=== PATIENT | male | born 1955 | race Caucasian/White ===

== ENCOUNTER 2020-12-28 04:47 | Inpatient (IN) | payer MEDICARE ==
[~2020-12-28] VITALS: Ht 190.5 cm; Wt 95.3 kg
[~2020-12-28 04:47] MED LIST: HYDROCODONE; ISOSORBIDE DINI20 MG PO; PLAVIX75 MG PO; SOMA350 MG PO; XANAX0.5 MG PO
[2020-12-28] MEDS ORDERED: SODIUM CHLORIDE 0.9% 1000ML 1,000 ML IV STA (05:58)
[2020-12-28] MEDS ORDERED: METHYLPREDNISOLONE SOD SUCC 125 MG/2ML VIAL IV STA (05:58)
[2020-12-28] MEDS ORDERED: ONDANSETRON HCL INJ 2MG/ML 2ML 2 MG/ML VIAL IV STA (05:58)
[2020-12-28] MEDS ORDERED: ALPRAZOLAM 0.5 MG TAB PO ONE (06:00)
[2020-12-28 06:52] LABS: BASOPHILS # (AUTO) 0.1 (0.0-0.1); BASOPHILS % 0.3 % (0.0-1.0); EOSINOPHILS # (AUTO) 0.1 (0.0-0.4); EOSINOPHILS % 0.4 % (0.0-6.0); HEMATOCRIT 36.6 % (38.2-49.6); HEMOGLOBIN 12.6 g/dL (14.0-18.0); LYMPHOCYTES # (AUTO) 1.6 (1.0-3.2); LYMPHOCYTES % 7.5 % (18.0-39.1); MEAN CORPUSCULAR HEMOGLOBIN 30.1 pg (28-32); MEAN CORPUSCULAR HGB CONC 34.4 g/dL (31-35); MEAN CORPUSCULAR VOLUME 87.6 fL (81-99); MONOCYTES # (AUTO) 1.1 (0.2-0.8); MONOCYTES % 5.1 % (4.4-11.3); NEUTROPHILS # (AUTO) 18.3 (2.1-6.9); NEUTROPHILS % 85.6 % (38.7-80.0); PLATELET COUNT 704 x10e3/uL (140-360); RED BLOOD COUNT 4.18 x10e6/uL (4.3-5.7); RED CELL DISTRIBUTION WIDTH 14.1 % (11.7-14.4)
[2020-12-28 07:01] LABS: INR 1.04; PARTIAL THROMBOPLASTIN TIME 41.1 seconds (23.8-35.5); PROTHROMBIN TIME 14.2 seconds (11.9-14.5)
[2020-12-28 07:09] LABS: ALBUMIN 2.4 g/dL (3.5-5.0); ALBUMIN/GLOBULIN RATIO 0.4 (0.8-2.0); ANION GAP 16.3 mmol/L (8-16); CALCIUM 8.9 mg/dL (8.4-10.2); CREATININE, SERUM 1.23 mg/dL (0.72-1.25); POTASSIUM 3.3 mmol/L (3.5-5.1)
[2020-12-28 07:15] LABS: CREATINE KINASE MB 0.8 ng/mL (0-5.0)
[2020-12-28] MEDS: LEVOFLOXACIN 750MG/D5W 150ML 150 ML IV SCH (07:30)
[2020-12-28] MEDS ORDERED: ALBUTEROL/IPRATROPIUM 3 ML NEB NEB ONE (08:15)
[2020-12-28] MEDS ORDERED: ALBUTEROL/IPRATROPIUM 3 ML NEB NEB PRN (08:45)
[2020-12-28] MEDS ORDERED: SODIUM CHLORIDE 0.9% 50ML 0 ML ONE (08:52)
[2020-12-28] MEDS ORDERED: IOPAMIDOL 370 MG/ML 200 ML INFUS..BTL INJ ONE (08:52)
[2020-12-28] MEDS ORDERED: LORAZEPAM INJ 2 MG/ML VIAL IV ONE (09:00)
[2020-12-28] MEDS: AZTREONAM 1 GM/NS 50 ML 50 ML IV SCH ×2 (09:48→18:00)
[2020-12-28] MEDS: SODIUM CHLORIDE 0.9% 1000ML 1,000 ML IV SCH ×2 (10:57→18:17)
[2020-12-28] MEDS ORDERED: ALBUTEROL SULF 0.083% NEB SOLN 3 ML NEB NEB SCH (11:00)
[2020-12-28] MEDS: CLINDAMYCIN PHOS 900MG/ 50ML 50 ML IV SCH ×2 (11:14→17:43)
[2020-12-28] MEDS: ISOSORBIDE DINITRATE 20 MG TAB PO SCH (11:14)
[2020-12-28 12:55] VITALS: BP 100/78
[2020-12-28] MEDS ORDERED: IPRATROPIUM BROMIDE 0.02% 2.5 ML NEB NEB SCH (13:00)
[2020-12-28] MEDS: ALBUTEROL/IPRATROPIUM 3 ML NEB NEB SCH ×2 (13:00→19:30)
[2020-12-28 13:05] VITALS: BP 100/78
[2020-12-28] MEDS: HYDROCODONE/APAP 5MG-325MG TAB PO PRN (15:20)
[2020-12-28] MEDS: BENZONATATE 100 MG CAP PO PRN ×2 (15:24→23:55)
[2020-12-28 15:35] LABS: CREATINE KINASE MB 0.8 ng/mL (0-5.0)
[2020-12-28 15:50] VITALS: BP 87/69
[2020-12-28 19:46] VITALS: BP 121/87
[2020-12-28 20:00] VITALS: BP 121/87
[2020-12-28] MEDS: CARISOPRODOL 350 MG TAB PO PRN (20:43)
[2020-12-28] MEDS: METHYLPREDNISOLONE SOD SUCC 40 MG/ML VIAL 1ML IV SCH (20:43)
[2020-12-28] MEDS: ALPRAZOLAM 1 MG TAB PO PRN (20:43)
[2020-12-29] VITALS (8 sets, daily range): BP systolic 87–122; BP diastolic 62–95
[2020-12-29] MEDS: ALBUTEROL/IPRATROPIUM 3 ML NEB NEB SCH ×5 (00:15→20:45)
[2020-12-29] MEDS: CLINDAMYCIN PHOS 900MG/ 50ML 50 ML IV SCH ×3 (01:07→18:10)
[2020-12-29] MEDS: AZTREONAM 1 GM/NS 50 ML 50 ML IV SCH ×3 (01:07→16:13)
[2020-12-29] MEDS: SODIUM CHLORIDE 0.9% 1000ML 1,000 ML IV SCH ×3 (01:07→14:38)
[2020-12-29 06:51] LABS: BASOPHILS % 0.1 % (0.0-1.0); HEMATOCRIT 29.3 % (38.2-49.6); HEMOGLOBIN 9.8 g/dL (14.0-18.0); LYMPHOCYTES # (AUTO) 1.1 (1.0-3.2); LYMPHOCYTES % 7.5 % (18.0-39.1); MEAN CORPUSCULAR HEMOGLOBIN 29.9 pg (28-32); MEAN CORPUSCULAR HGB CONC 33.4 g/dL (31-35); MEAN CORPUSCULAR VOLUME 89.3 fL (81-99); MONOCYTES # (AUTO) 0.6 (0.2-0.8); NEUTROPHILS # (AUTO) 13.3 (2.1-6.9); NEUTROPHILS % 87.9 % (38.7-80.0); PLATELET COUNT 555 x10e3/uL (140-360); RED BLOOD COUNT 3.28 x10e6/uL (4.3-5.7); RED CELL DISTRIBUTION WIDTH 14.3 % (11.7-14.4)
[2020-12-29 07:23] LABS: ALANINE AMINOTRANSFERASE 9 IU/L (0-55); ALBUMIN 1.9 g/dL (3.5-5.0); ALBUMIN/GLOBULIN RATIO 0.4 (0.8-2.0); ALKALINE PHOSPHATASE 79 IU/L (40-150); ANION GAP 15.1 mmol/L (8-16); BLOOD UREA NITROGEN 22 mg/dL (7-26); BUN/CREATININE RATIO 21 (6-25); CARBON DIOXIDE 22 mmol/L (22-29); CHLORIDE 99 mmol/L (98-107); CREATININE, SERUM 1.06 mg/dL (0.72-1.25); EST GLOMERULAR FILTRATION RATE > 60 ML/MIN (60-); GLUCOSE 166 mg/dL (74-118); POTASSIUM 4.1 mmol/L (3.5-5.1); SODIUM 132 mmol/L (136-145)
[2020-12-29 07:33] LABS: CREATINE KINASE 29 IU/L (30-200)
[2020-12-29] MEDS: ISOSORBIDE DINITRATE 20 MG TAB PO SCH (08:56)
[2020-12-29] MEDS: LEVOFLOXACIN 750MG/D5W 150ML 150 ML IV SCH (08:56)
[2020-12-29] MEDS: METHYLPREDNISOLONE SOD SUCC 40 MG/ML VIAL 1ML IV SCH (08:56)
[2020-12-29] MEDS: ALPRAZOLAM 1 MG TAB PO PRN ×2 (09:03→20:40)
[2020-12-29] MEDS: CARISOPRODOL 350 MG TAB PO PRN ×2 (09:03→20:40)
[2020-12-29] MEDS: DOXYCYCLINE HYCLATE TABLET 100 MG TAB PO SCH ×2 (12:25→20:40)
[2020-12-29] MEDS: HYDROCODONE/APAP 5MG-325MG TAB PO PRN (14:39)
[2020-12-30] VITALS (8 sets, daily range): BP systolic 103–141; BP diastolic 70–111
[2020-12-30] MEDS: AZTREONAM 1 GM/NS 50 ML 50 ML IV SCH ×3 (00:35→16:37)
[2020-12-30] MEDS: CLINDAMYCIN PHOS 900MG/ 50ML 50 ML IV SCH ×3 (01:32→16:37)
[2020-12-30] MEDS: ALBUTEROL/IPRATROPIUM 3 ML NEB NEB SCH ×4 (02:07→21:36)
[2020-12-30] MEDS: ALPRAZOLAM 1 MG TAB PO PRN ×2 (03:15→19:53)
[2020-12-30] MEDS: HYDROCODONE/APAP 5MG-325MG TAB PO PRN ×3 (03:15→22:10)
[2020-12-30] MEDS: CARISOPRODOL 350 MG TAB PO PRN ×2 (03:58→16:46)
[2020-12-30] MEDS: SODIUM CHLORIDE 0.9% 1000ML 1,000 ML IV SCH ×2 (05:34→23:19)
[2020-12-30 06:44] LABS: BASOPHILS % 0.1 % (0.0-1.0); EOSINOPHILS % 0.1 % (0.0-6.0); HEMATOCRIT 25.6 % (38.2-49.6); HEMOGLOBIN 8.7 g/dL (14.0-18.0); LYMPHOCYTES # (AUTO) 2.3 (1.0-3.2); LYMPHOCYTES % 17.3 % (18.0-39.1); MEAN CORPUSCULAR HEMOGLOBIN 30.3 pg (28-32); MEAN CORPUSCULAR VOLUME 89.2 fL (81-99); MONOCYTES # (AUTO) 0.7 (0.2-0.8); MONOCYTES % 5.3 % (4.4-11.3); NEUTROPHILS # (AUTO) 10.1 (2.1-6.9); NEUTROPHILS % 76.7 % (38.7-80.0); PLATELET COUNT 544 x10e3/uL (140-360); RED BLOOD COUNT 2.87 x10e6/uL (4.3-5.7); RED CELL DISTRIBUTION WIDTH 14.3 % (11.7-14.4)
[2020-12-30 07:06] LABS: ANION GAP 10.1 mmol/L (8-16); BLOOD UREA NITROGEN 17 mg/dL (7-26); BUN/CREATININE RATIO 21 (6-25); CALCIUM 7.8 mg/dL (8.4-10.2); CARBON DIOXIDE 24 mmol/L (22-29); CHLORIDE 104 mmol/L (98-107); CREATININE, SERUM 0.81 mg/dL (0.72-1.25); EST GLOMERULAR FILTRATION RATE > 60 ML/MIN (60-); GLUCOSE 88 mg/dL (74-118); POTASSIUM 4.1 mmol/L (3.5-5.1); SODIUM 134 mmol/L (136-145)
[2020-12-30] MEDS: DOXYCYCLINE HYCLATE TABLET 100 MG TAB PO SCH ×2 (09:00→20:38)
[2020-12-30] MEDS: ISOSORBIDE DINITRATE 20 MG TAB PO SCH (09:00)
[2020-12-30] MEDS: METHYLPREDNISOLONE SOD SUCC 40 MG/ML VIAL 1ML IV SCH (09:51)
[2020-12-30] MEDS ORDERED: LIDOCAINE HCL 2% JELLY 5 ML TUBE ONE (12:35)
[2020-12-30] MEDS ORDERED: DEXAMETHASONE SOD PHOS INJ 4 MG/ML VIAL ONE (12:35)
[2020-12-30] MEDS ORDERED: LIDOCAINE HCL 2% LOCAL INJ 5 ML SDV VIAL INJ ONE (12:35)
[2020-12-30] MEDS ORDERED: PROPOFOL IV EMULSION 10 MG/ML 20 ML VIAL ONE (12:35)
[2020-12-30] MEDS ORDERED: ONDANSETRON HCL INJ 2MG/ML 2ML 2 MG/ML VIAL ONE (12:35)
[2020-12-30] MEDS ORDERED: SEVOFLURANE INHAL SOLN 250 ML PEN BTL ONE (12:35)
[2020-12-30] MEDS ORDERED: MIDAZOLAM HCL 2 MG/2 ML VIAL ONE (13:18)
[2020-12-30] MEDS ORDERED: FENTANYL CITRATE/PF 100MCG/2 ML INJ ONE (13:18)
[2020-12-30] MEDS ORDERED: LIDOCAINE HCL 1% LOCAL INJ 20 ML VIAL ONE (13:30)
[2020-12-30] MEDS ORDERED: LIDOCAINE HCL 4% 50 ML BTL ONE (14:04)
[2020-12-30] MEDS ORDERED: EPINEPHRINE HCL 1:1000 1ML 1 MG/ML AMP ONE (14:32)
[2020-12-31] VITALS (7 sets, daily range): BP systolic 113–138; BP diastolic 85–108
[2020-12-31] MEDS ORDERED: SODIUM CHLORIDE 0.9% 50ML 0 ML ONE (01:20)
[2020-12-31] MEDS: AZTREONAM 1 GM/NS 50 ML 50 ML IV SCH ×3 (01:22→16:00)
[2020-12-31] MEDS: CARISOPRODOL 350 MG TAB PO PRN ×3 (01:23→20:20)
[2020-12-31] MEDS: CLINDAMYCIN PHOS 900MG/ 50ML 50 ML IV SCH ×3 (02:03→17:51)
[2020-12-31] MEDS: ALBUTEROL/IPRATROPIUM 3 ML NEB NEB SCH ×3 (05:20→19:40)
[2020-12-31] MEDS: SODIUM CHLORIDE 0.9% 1000ML 1,000 ML IV SCH (05:27)
[2020-12-31] MEDS: ALPRAZOLAM 1 MG TAB PO PRN ×2 (05:33→15:45)
[2020-12-31] MEDS: METHYLPREDNISOLONE SOD SUCC 40 MG/ML VIAL 1ML IV SCH (08:19)
[2020-12-31] MEDS: ISOSORBIDE DINITRATE 20 MG TAB PO SCH (08:22)
[2020-12-31] MEDS: DOXYCYCLINE HYCLATE TABLET 100 MG TAB PO SCH ×2 (08:22→20:14)
[2020-12-31] MEDS: HYDROCODONE/APAP 5MG-325MG TAB PO PRN ×3 (09:27→20:20)
[2021-01-01] VITALS (7 sets, daily range): BP systolic 114–163; BP diastolic 77–114
[2021-01-01] MEDS: AZTREONAM 1 GM/NS 50 ML 50 ML IV SCH ×3 (01:27→16:01)
[2021-01-01] MEDS: ALBUTEROL/IPRATROPIUM 3 ML NEB NEB SCH ×4 (01:50→23:26)
[2021-01-01] MEDS: ALPRAZOLAM 1 MG TAB PO PRN ×2 (02:39→19:32)
[2021-01-01] MEDS: CLINDAMYCIN PHOS 900MG/ 50ML 50 ML IV SCH ×3 (02:39→17:22)
[2021-01-01 06:19] LABS: BASOPHILS % 0.2 % (0.0-1.0); EOSINOPHILS # (AUTO) 0.1 (0.0-0.4); EOSINOPHILS % 0.8 % (0.0-6.0); HEMOGLOBIN 9.4 g/dL (14.0-18.0); LYMPHOCYTES # (AUTO) 2.5 (1.0-3.2); LYMPHOCYTES % 19.1 % (18.0-39.1); MEAN CORPUSCULAR HEMOGLOBIN 29.7 pg (28-32); MEAN CORPUSCULAR HGB CONC 33.6 g/dL (31-35); MEAN CORPUSCULAR VOLUME 88.6 fL (81-99); MONOCYTES # (AUTO) 0.7 (0.2-0.8); MONOCYTES % 5.3 % (4.4-11.3); NEUTROPHILS # (AUTO) 9.7 (2.1-6.9); NEUTROPHILS % 74.1 % (38.7-80.0); PLATELET COUNT 532 x10e3/uL (140-360); RED BLOOD COUNT 3.16 x10e6/uL (4.3-5.7); RED CELL DISTRIBUTION WIDTH 14.4 % (11.7-14.4)
[2021-01-01 06:54] LABS: ANION GAP 12.1 mmol/L (8-16); BLOOD UREA NITROGEN 14 mg/dL (7-26); BUN/CREATININE RATIO 18 (6-25); CARBON DIOXIDE 28 mmol/L (22-29); CHLORIDE 97 mmol/L (98-107); CREATININE, SERUM 0.78 mg/dL (0.72-1.25); EST GLOMERULAR FILTRATION RATE > 60 ML/MIN (60-); GLUCOSE 69 mg/dL (74-118); POTASSIUM 4.1 mmol/L (3.5-5.1); SODIUM 133 mmol/L (136-145)
[2021-01-01] MEDS: METHYLPREDNISOLONE SOD SUCC 40 MG/ML VIAL 1ML IV SCH (07:46)
[2021-01-01] MEDS: ISOSORBIDE DINITRATE 20 MG TAB PO SCH (07:47)
[2021-01-01] MEDS: DOXYCYCLINE HYCLATE TABLET 100 MG TAB PO SCH ×2 (07:47→20:22)
[2021-01-01] MEDS: HYDROCODONE/APAP 5MG-325MG TAB PO PRN ×3 (07:48→19:32)
[2021-01-01] MEDS: CARISOPRODOL 350 MG TAB PO PRN ×2 (07:48→16:02)
[2021-01-02] VITALS: BP 140/98
[2021-01-02] MEDS: AZTREONAM 1 GM/NS 50 ML 50 ML IV SCH ×2 (01:00→10:16)
[2021-01-02] MEDS: CLINDAMYCIN PHOS 900MG/ 50ML 50 ML IV SCH ×2 (01:35→10:16)
[2021-01-02] MEDS: HYDROCODONE/APAP 5MG-325MG TAB PO PRN (01:55)
[2021-01-02 04:00] VITALS: BP 136/96
[2021-01-02] MEDS: CARISOPRODOL 350 MG TAB PO PRN (05:13)
[2021-01-02] MEDS: ALPRAZOLAM 1 MG TAB PO PRN (05:13)
[2021-01-02] MEDS: ALBUTEROL/IPRATROPIUM 3 ML NEB NEB SCH ×3 (07:00→13:35)
[2021-01-02] MEDS ORDERED: HYDROCODONE/APAP 5MG-325MG TAB PO PRN (09:30)
[2021-01-02] MEDS ORDERED: ALPRAZOLAM 1 MG TAB PO PRN (09:30)
[2021-01-02] MEDS: DOXYCYCLINE HYCLATE TABLET 100 MG TAB PO SCH (10:16)
[2021-01-02] MEDS: ISOSORBIDE DINITRATE 20 MG TAB PO SCH (10:16)
[2021-01-02] MEDS: METHYLPREDNISOLONE SOD SUCC 40 MG/ML VIAL 1ML IV SCH (10:16)
== END 2021-01-02 15:13 | disposition home or self-care (01) | DRG 871 ==
LOC: ER 06:00 → ERHOLD 08:25 → MED/SURG3 12:43
PROVIDERS: ADMIT Internal Medicine; ATTEND Internal Medicine
PROC: 0BD88ZX Extraction of Left Upper Lobe Bronchus, Via Natural or Artificial Opening Endoscopic, Diagnostic (ICD-10-PCS; 2020-12-30)
PROC: 0B9G8ZX Drainage of Left Upper Lung Lobe, Via Natural or Artificial Opening Endoscopic, Diagnostic (ICD-10-PCS; principal; 2020-12-30 14:30)
DX: A41.9 Sepsis, unspecified organism (principal); J96.01 Acute respiratory failure with hypoxia; E43 Unspecified severe protein-calorie malnutrition; J15.6 Pneumonia due to other Gram-negative bacteria; J15.5 Pneumonia due to Escherichia coli; C34.92 Malignant neoplasm of unspecified part of left bronchus or lung; R91.8 Other nonspecific abnormal finding of lung field; Z68.26 Body mass index [BMI] 26.0-26.9, adult; R63.0 Anorexia; J43.9 Emphysema, unspecified; Z99.81 Dependence on supplemental oxygen; I25.10 Atherosclerotic heart disease of native coronary artery without angina pectoris; Z87.891 Personal history of nicotine dependence; I73.9 Peripheral vascular disease, unspecified; I25.2 Old myocardial infarction; Z20.822 Contact with and (suspected) exposure to COVID-19
CPT/HCPCS: 31622; 36415; 36569; 71045; 71250; 80048; 80053; 82550; 82553; 83605; 83735; 83880; 84484; 85025; 85610; 85730; 87040; 87070; 87102; 87109; 87116; 87186; 87205; 87206; 87335; 88112; 88305; 88312; 93005; 94640; 97139; 99285; J0171; J1100; J2001; J2060; J2250; J2405; J2920; J2930; J3010; J7030; Q9967; U0002

== ENCOUNTER 2023-02-13 19:46 | Emergency (ER) | payer MEDICARE ==
[~2023-02-13] VITALS: Ht 190.5 cm; Wt 83.9 kg
[2023-02-13] MEDS ORDERED: NAPROSYN500 MG PO (22:45)
[2023-02-13 23:11] VITALS: BP 120/81; PULSE 54; RESP 16; TEMP 98.4; O2SAT 100
== END 2023-02-13 23:38 | disposition home or self-care (01) ==
LOC: ER 19:49
DX: M54.50 Low back pain, unspecified (principal); G89.29 Other chronic pain; W18.11XA Fall from or off toilet without subsequent striking against object, initial encounter; Y92.89 Other specified places as the place of occurrence of the external cause; I10 Essential (primary) hypertension; J44.9 Chronic obstructive pulmonary disease, unspecified; I25.2 Old myocardial infarction; Z86.73 Personal history of transient ischemic attack (TIA), and cerebral infarction without residual deficits
CPT/HCPCS: 72100; 99283